=== PATIENT | female | born 1990 | race Caucasian/White ===

== ENCOUNTER 2025-07-01 15:02 | Emergency (ER) | payer SELFPAY ==
[2025-07-01] MEDS ORDERED: Ondansetron PF 4 MG/2 ML Vial ONE ×2 (16:00→17:35)
[2025-07-01] MEDS ORDERED: Ketorolac Tromethamine 30 MG (1 mL) VIAL ONE (17:50)
[2025-07-01] MEDS ORDERED: Methocarbamol 500 MG TAB ONE (19:26)
[2025-07-01] MEDS ORDERED: Methocarbamol 500 MG TAB PO SCH (19:30)
== END 2025-07-01 19:49 | disposition home or self-care (01) ==
LOC: ERS 15:02
DX: S42.202A Unspecified fracture of upper end of left humerus, initial encounter for closed fracture (principal); F17.290 Nicotine dependence, other tobacco product, uncomplicated; Z79.899 Other long term (current) drug therapy; V80.010A Animal-rider injured by fall from or being thrown from horse in noncollision accident, initial encounter; Y93.52 Activity, horseback riding
CPT/HCPCS: 96374; 96375; 96376; J1885